=== PATIENT | female | born 1935 | race Caucasian/White ===

== ENCOUNTER 2020-08-16 01:35 | Inpatient (IN) | payer MEDICARE ==
[2020-08-16 01:44] VITALS: BP 152/83; PULSE 70; RESP 16; TEMP 97.9
--- NOTE | 2020-08-16 01:59 | ED ---
Fall HPI - General Chief Complaint: Fall Stated Complaint: Fall Time Seen by Provider: 08/16/20 01:50 Source: patient, EMS Mode of arrival: EMS - History of Present Illness Initial Comments: Patient is an 85-year-old female with dementia, AO1 at baseline presenting to emergency Department with chief complaint of a fall. Patient lives currently with her daughter. Daughter is also present in the room to answer any additional questions. Daughter states that her heard a loud noise and found the patient as she was going to the bathroom. Patient typically uses a walker but this time they cannot find it. This was an unwitnessed fall. Questionable loss of consciousness. The patient was conscious when they found her on the floor. Patient is alert and able to follow simple instructions. Daughter states the patient is acting at her baseline at the moment. EMS was contacted and brought the patient for evaluation. Review of Systems ROS Statement: Those systems with pertinent positive or pertinent negative responses have been documented in the HPI. ROS Other: All systems not noted in ROS Statement are negative. Past Medical History Past Medical History: Unable to Obtain History of Any Multi-Drug Resistant Organisms: Unobtainable Past Surgical History: Unable to Obtain Past Psychological History: Unable to Obtain Smoking Status: Unknown if ever smoked Past Alcohol Use History: Unable to Obtain Past Drug Use History: Unable to Obtain General Exam Limitations: altered mental status, physical limitation General appearance: alert, in no apparent distress Head exam: Present: normocephalic. Absent: atraumatic (Large left periorbital hematoma), normal inspection (Left hematoma), other (Negative Clark sign, raccoon eyes, hemotympanum.) Eye exam: Present: normal appearance, PERRL, EOMI, periorbital swelling (Large left periorbital hematoma), periorbital tenderness (Left) Pupils: Present: normal accommodation ENT exam: Present: normal exam, normal oropharynx, mucous membranes dry, TM's normal bilaterally, normal external ear exam Neck exam: Present: normal inspection, full ROM. Absent: tenderness Respiratory exam: Present: normal lung sounds bilaterally. Absent: respiratory distress, wheezes, rales Cardiovascular Exam: Present: regular rate, normal rhythm, normal heart sounds GI/Abdominal exam: Present: soft. Absent: distended, tenderness, guarding, rebound Extremities exam: Present: normal inspection, full ROM, normal capillary refill. Absent: tenderness, pedal edema, joint swelling, calf tenderness Back exam: Present: normal inspection, full ROM. Absent: tenderness Neurological exam: Present: alert Psychiatric exam: Present: normal affect Skin exam: Present: warm, dry, intact, normal color Course Vital Signs 08/16/20 01:40 Temperature 97.9 F Pulse Rate 70 Respiratory 16 Rate Blood Pressure 152/83 O2 Sat by Pulse 95 Oximetry Medical Decision Making - Medical Decision Making 85-year-old female with history of dementia,AOx1 at baseline presenting to the emergency department with chief complaint of a fall. On physical examination, patient has a large left periorbital hematoma. Patient is able to follow simple instructions although not fully able to carry conversation. Daughter states this is her baseline due to her advanced dementia. CBC unremarkable. PT/INR within normal limits. CT of the facial bones is unremarkable. CT of the brain and C-spine without contrast reveals left subdural hemorrhage. Patient is DNR code status. Dr Olsen Spoke with Dr Tang who wanted to get the patient admitted and not transfer. Hospice consulted. Comfort care. CT in the AM. I spoke with Stacy who will admit for Dr Rhoades. - Lab Data Result diagrams: 08/16/20 02:30 Lab Results 08/16/20 08/16/20 Range/Units 02:30 02:30 WBC 5.5 (3.8-10.6) k/uL RBC 4.39 (3.80-5.40) m/uL Hgb 13.8 (11.4-16.0) gm/dL Hct 42.7 (34.0-46.0) % MCV 97.3 (80.0-100.0) fL MCH 31.5 (25.0-35.0) pg MCHC 32.4 (31.0-37.0) g/dL RDW 13.6 (11.5-15.5) % Plt Count 228 (150-450) k/uL MPV 8.3 Neutrophils % 59 % Lymphocytes % 28 % Monocytes % 7 % Eosinophils % 5 % Basophils % 1 % Neutrophils # 3.2 (1.3-7.7) k/uL Lymphocytes # 1.5 (1.0-4.8) k/uL Monocytes # 0.4 (0-1.0) k/uL Eosinophils # 0.2 (0-0.7) k/uL Basophils # 0.1 (0-0.2) k/uL PT 10.1 (9.0-12.0) sec INR 1.0 (<1.2) APTT 20.3 L (22.0-30.0) sec - EKG Data EKG Comments: Sinus rhythm with occasional PVC Ventricular rate 69, NC 152, QRS 88, QTC 458 Disposition Clinical Impression: Fall, Periorbital hematoma of left eye, Subdural hemorrhage following injury Disposition: ADMITTED IP TO THIS HOSP Condition: Fair Is patient prescribed a controlled substance at d/c from ED?: No Referrals: Lilia Comer MD [Primary Care Provider] - 1-2 days Time of Disposition: 03:34
[2020-08-16 02:36] LABS: Basophils # (A) 0.1 k/uL (0-0.2); Basophils % (A) 1 %; Eosinophils # (A) 0.2 k/uL (0-0.7); Eosinophils % (A) 5 %; HCT 42.7 % (34.0-46.0); HGB 13.8 gm/dL (11.4-16.0); Lymphocytes # (A) 1.5 k/uL (1.0-4.8); Lymphocytes % (A) 28 %; MCH 31.5 pg (25.0-35.0); MCHC 32.4 g/dL (31.0-37.0); MCV 97.3 fL (80.0-100.0); Mean Platelet Volume 8.3; Monocytes # (A) 0.4 k/uL (0-1.0); Monocytes % (A) 7 %; Neutrophils # (A) 3.2 k/uL (1.3-7.7); Neutrophils % (A) 59 %; Platelet Count 228 k/uL (150-450); RBC 4.39 m/uL (3.80-5.40); RDW 13.6 % (11.5-15.5); WBC 5.5 k/uL (3.8-10.6)
--- NOTE | 2020-08-16 03:14 | CT ---
EXAM: CT Head Without Intravenous Contrast CLINICAL HISTORY: ITS.REASON CT Reason: fall ,head injury TECHNIQUE: Axial computed tomography images of the head/brain without intravenous contrast. CTDI is 31.585 mGy and DLP is 911.5 mGy-cm. This CT exam was performed using one or more of the following dose reduction techniques: automated exposure control, adjustment of the mA and/or kV according to patient size, and/or use of iterative reconstruction technique. COMPARISON: No relevant prior studies available. FINDINGS: Brain: Left frontotemporal extra-axial hemorrhage measuring up to 8 mm in thickness, likely subdural. Minimal rightward shift measuring 1-2 mm. No acute cortical infarct. Involutional changes and small vessel disease. Ventricles: Unremarkable. Bones/joints: No depressed calvarial fracture. Soft tissues: Left frontal scalp soft tissue swelling. Sinuses: Unremarkable as visualized. Mastoid air cells: Bilateral mastoid fluid. IMPRESSION: Left subdural hemorrhage, as above. EXAM: CT Neck Without Intravenous Contrast CLINICAL HISTORY: ITS.REASON CT Reason: fall ,head injury TECHNIQUE: Axial computed tomography images of the neck without intravenous contrast. CTDI is 31.585 mGy and DLP is 911.5 mGy-cm. This CT exam was performed using one or more of the following dose reduction techniques: automated exposure control, adjustment of the mA and/or kV according to patient size, and/or use of iterative reconstruction technique. COMPARISON: No relevant prior studies available. FINDINGS: Artifacts: Motion artifact. Oropharynx: Unremarkable. Hypopharynx: Unremarkable. Larynx: Unremarkable epiglottis. Trachea: Unremarkable. Retropharyngeal space: Unremarkable. Submandibular/parotid glands: Unremarkable. Thyroid: Small right thyroid nodule. Nonemergent ultrasound can further evaluate if indicated. Bones/joints: Degenerative changes without evidence of acute fracture. Soft tissues: Unremarkable. Vasculature: Atherosclerotic disease. Lymph nodes: Unremarkable. Lung apices: Nonspecific groundglass densities and septal thickening. IMPRESSION: No acute fracture. <MYCVCSECTION> Communications: 08/16/20 03:28 Verify Receipt Verified receipt with [facility]
[2020-08-16 03:15] LABS: Prothrombin Time 10.1 sec (9.0-12.0)
[2020-08-16 03:16] LABS: Partial Thromboplastin Time 20.3 sec (22.0-30.0)
--- NOTE | 2020-08-16 03:16 | CT ---
EXAM: CT Maxillofacial Without Intravenous Contrast CLINICAL HISTORY: ITS.REASON CT Reason: left periorbital edema TECHNIQUE: Axial computed tomography images of the face without intravenous contrast. CTDI is 11.4 mGy and DLP is 310 mGy-cm. This CT exam was performed using one or more of the following dose reduction techniques: automated exposure control, adjustment of the mA and/or kV according to patient size, and/or use of iterative reconstruction technique. COMPARISON: No relevant prior studies available. FINDINGS: Bones/joints: No acute fracture. Soft tissues: Left periorbital soft tissue swelling/hematoma. Orbits: Bilateral globes appear intact. Sinuses: Mild sinus disease. IMPRESSION: No acute fracture.
[2020-08-16] MEDS ORDERED: MORPHINE SULFATE 4 MG/ML SYRINGE IV PRN (03:55)
[2020-08-16] MEDS ORDERED: LORazepam 2 MG/ML INJ IV PRN (03:55)
[2020-08-16] MEDS ORDERED: ACETAMINOPHEN TAB 325 MG TAB PO PRN (03:55)
[2020-08-16] MEDS ORDERED: NALOXONE 0.4 MG/ML 1 ML VIAL IV PRN (03:55)
[2020-08-16] MEDS ORDERED: HYDROmorphone 0.5 MG/0.5 ML SYRINGE IVP PRN (03:55)
[2020-08-16] MEDS ORDERED: SODIUM CHLORIDE 0.9% 1,000 ML IV SCH (04:00)
[2020-08-16 04:18] LABS: Albumin 3.7 g/dL (3.5-5.0); Potassium 3.5 mmol/L (3.5-5.1); Total Bilirubin 0.4 mg/dL (0.2-1.3); Total Protein 6.6 g/dL (6.3-8.2)
--- NOTE | 2020-08-16 08:08 | CT ---
EXAMINATION TYPE: CT brain wo con DATE OF EXAM: 08/16/2020 COMPARISON: 08/16/2020 INDICATION: Follow up hematoma. DLP: 2600 mGycm, Automated exposure control for dose reduction was used. CONTRAST: None CT of the brain is performed utilizing 3 mm thick sections through the posterior fossa and 3 mm thick sections through the remaining calvarium. Study is performed within 24 hours of arrival to the hosp ital. There is a small left subdural hematoma with a depth of 0.7 cm. This is stable from comparison. No si gnificant mass effect on the adjacent brain is evident No mass lesion is evident. No acute infarcts are evident. Chronic appearing periventricular patchy infiltrates are present, like ly on the basis of chronic white matter ischemic changes. Ventricles and sulci are appropriate for the patient age. Paranasal sinuses and mastoid air cells within the [id number] are clear. There is a large superfic ial left periorbital hematoma which is unchanged. No underlying fracture is evident. IMPRESSIONS: 1. Small stable left subdural hematoma, unchanged from 08/16/2020. 2. Superficial subcutaneous hematoma is stable. 3. Chronic appearing periventricular white matter ischemic changes.
--- NOTE | 2020-08-16 10:02 | P.HPIM ---
History of Present Illness This is a pleasant 85 years old female with past medical history of advanced dementia, recurrent falls. Patient is confused, she concomitantly but she does not know where she is at home she does not know the time for the ear, she does not know the name of the president, and she does not know why she is in the hospital. She does not follow commands and she significant swelling in her left eyelid secondary to hematoma, it looks like last night patient was admitted for a fall, found to have subdural hematoma on the left side about 8 mm, the emergency room doctor Shankar Lee. the neurosurgeon at [facility] Dr. Marti who rejected the transfer and recommended to admit the patient to the hospital with recommendation for hospice care. I called the daughter were in, Leyla onto to her son Mr. Derrell Wilkins while she is here and over the speaker. He told me that last night she was trying to get to the bathroom when she fell, and they heard a loud sounds when they went there there was swelling on her left eye which looks she hit the toilet with her head and left eye which causing her to have left eye swelling and hematoma, she has history of recurrent falls but this is the first time got so severe so they called 911 and transfer her to the hospital. they told me her baseline is dementia, she cannot recognize the surrounding, she called them with a running names. When they ask her she answers with couple wards , when she starts a sentence she cannot finish her sentences she does not ask for food and she does not asked to be cleaned for example they ask her do want coffee she answers (no ) then says (yes I do coffee ) . 90% of the time patient does not ask to go to the bathroom and the family just hyper to go there. From their description that looks the patient has advanced dementia and hospice is recommended for her however the family does not want to pursue with hospice for now and they just want to keep monitoring and repeat CAT scan to make sure there is no worsening so they can take her home. They agree the don't want her to be transferred to a tertiary center, they did agree no surgery for her , and they told me she has DO NOT RESUSCITATE/DO NOT INTUBATE order I effort to give the patient monitoring until tomorrow and repeat CAT scan, however because of the culprit pandemic and the fear is that she may get an infection from a hospital they might take her home this afternoon. As an alternative I offered outpatient palliative consult and possible hospice if she deteriorates and they agree to talk to her watch caser, so I talked to Fiona and she is going to discuss with them Enrico looks stable, labs looks stable. CAT scan from yesterday show an 8 mm left subdural hematoma, repeat CAT scan from this morning shows stable 0.7 cm left subdural hematoma Review of Systems Review of systems: N/a. Patient denies any pain Past Medical History Past Medical History: Unable to Obtain History of Any Multi-Drug Resistant Organisms: Unobtainable Past Surgical History: Unable to Obtain Past Psychological History: Unable to Obtain Smoking Status: Unknown if ever smoked Past Alcohol Use History: Unable to Obtain Past Drug Use History: Unable to Obtain Medications and Allergies Home Medications Medication Instructions Recorded Confirmed Type Loperamide HCl [Imodium A-D] 2 mg PO Q48H 08/16/20 08/16/20 History Omeprazole 20 mg PO DAILY 08/16/20 08/16/20 History Sertraline [Zoloft] 50 mg PO DAILY 08/16/20 08/16/20 History amLODIPine [Norvasc] 10 mg PO DAILY 08/16/20 08/16/20 History hydroCHLOROthiazide 25 mg PO DAILY 08/16/20 08/16/20 History Allergies Allergy/AdvReac Type Severity Reaction Status Date / Time No Known Allergies Allergy Verified 08/16/20 08:48 Physical Exam Vitals: Vital Signs Temp Pulse Resp BP Pulse Ox 08/16/20 01:40 97.9 F 70 16 152/83 95 Intake and Output 08/15/20 08/16/20 08/16/20 22:59 06:59 14:59 Other: # Voids 1 Weight 68.039 kg GENERAL: The patient is awake and confused, she does not follow commands HEENT: Pupils are round and equally reacting to light. EOMI. No scleral icterus. No conjunctival pallor. Normocephalic, atraumatic. No pharyngeal erythema. No thyromegaly. Severe left periorbital hematoma, CARDIOVASCULAR: S1 and S2 present. No murmurs, rubs, or gallops. PULMONARY: Chest is clear to auscultation, no wheezing or crackles. ABDOMEN: Soft, nontender, nondistended, normoactive bowel sounds. No palpable organomegaly. MUSCULOSKELETAL: No joint swelling or deformity. EXTREMITIES: No cyanosis, clubbing, or pedal edema. NEUROLOGICAL: Gross neurological examination did not reveal any focal deficits. SKIN: No rashes. no petechiae. Results CBC & Chem 7: 08/16/20 02:30 08/16/20 02:59 Labs: Abnormal Lab Results - Last 24 Hours (Table) 08/16/20 08/16/20 Range/Units 02:30 02:59 APTT 20.3 L (22.0-30.0) sec Carbon Dioxide 31 H (22-30) mmol/L BUN 22 H (7-17) mg/dL Glucose 132 H (74-99) mg/dL Assessment and Plan Assessment: Acute left subdural hematoma, stable repeat CAT scan Severe left periorbital hematoma Severe and advanced dementia, end stage dementia DO NOT RESUSCITATE order Plan: this is a pleasant 85 years old female who presents with advanced/end stage dementia and subdural hematoma. Continue with symptomatic treatment and monitoring, pain management. Patient is eligible for palliative consult and possible hospice care however family does not want that now. Discussed with the family and they just want to monitor her until they decided to take her home today or tomorrow, discussed with the watch caser Fiona was going to talk to the family sometime today DVT prophylaxis. No heparin because of hematoma GI prophylaxis: Pepcid Prognosis is poor both short-term and long-term prognosis
[2020-08-16] MEDS ORDERED: INFLUENZA VACCINE (6 MOS+) 60 MCG/0.5 ML SYRINGE IM ONE (10:18)
[2020-08-16] MEDS ORDERED: ERYTHROMYCIN 5 MG/GM OPHTH OINT 3.5 GM TUBE LEFT EYE SCH (12:00)
== END 2020-08-16 13:29 | disposition hospice, home (50) | DRG 951 ==
LOC: EC 01:35 → 6NMEDSUR 04:45
PROVIDERS: ADMIT Hospitalist; ATTEND Hospitalist
DX: Z51.5 Encounter for palliative care (principal); S06.5X9A Traumatic subdural hemorrhage with loss of consciousness of unspecified duration, initial encounter; F03.90 Unspecified dementia, unspecified severity, without behavioral disturbance, psychotic disturbance, mood disturbance, and anxiety; S00.12XA Contusion of left eyelid and periocular area, initial encounter; Z66 Do not resuscitate; R29.6 Repeated falls; Z79.899 Other long term (current) drug therapy; W19.XXXA Unspecified fall, initial encounter
CPT/HCPCS: 36415; 70450; 70486; 72125; 80053; 85025; 85610; 85730; 90686; 93005; 96374; 99285